=== PATIENT | male | born 1955 | race African-American/Black ===

== ENCOUNTER 2016-07-16 16:11 | Emergency (ER) ==
[2016-07-16 16:17] VITALS: BP 175/89; TEMP 99.1; BMI 21.7
--- NOTE | 2016-07-16 16:44 | ED.PDOC ---
General ED Provider: Dr. LISS FINNEY JR Chief Complaint: Abdominal Pain Stated Complaint: MID LOWER ABD PAIN, INCREASES WITH BREATHING. [ End ]3 days 99.1 68 20 98%175/89 10/10. two weeks of pain no inciting events no problem eating no NVD pain with palpation only in luq Time Seen by Physician: 16:44 Mode of Arrival: Walk-In Information Source: Patient Exam Limitations: No limitations [facility] Nursing and Triage Documentation Reviewed and Agree: No Review of Systems - Review Of Systems Constitutional: Reports: No symptoms Eyes: Reports: No symptoms Ears, Nose, Mouth, Throat: Reports: No symptoms Respiratory: Reports: No symptoms Cardiac: Reports: No symptoms GI: Reports: Abdominal pain ( cramping epigastric ruq) : Reports: No symptoms Musculoskeletal: Reports: No symptoms Skin: Reports: No symptoms Neurological: Reports: No symptoms Endocrine: Reports: No symptoms Hematologic/Lymphatic: Reports: No symptoms All Other Systems: Other Past Medical History - Past Medical History Endocrine: Reports: None Cardiovascular: Reports: Hypertension Respiratory: Reports: None Hematological: Reports: None Gastrointestinal: Reports: None Genitourinary: Reports: None, Kidney stones (renal stent 1 month ago, "this hurts worse") Neuro/Psych: Reports: None Musculoskeletal: Reports: None, Other (htn ks appy hand sx cramping epigastric ruq) Cancer: Reports: None - Surgical History General Surgical History: Reports: Appendectomy, Orthopedic (HAND ) - Family History Family History: Reports: None - Social History Smoking Status: Former smoker Hx Substance Use: No Alcohol Screening: None - Immunizations Tetanus Shot up to Date: Yes Physical Exam - Physical Exam Appearance: Well-appearing, Thin Pain Distress: Moderate Neck: Supple Respiratory: Airway patent GI/: Soft, Bowel sounds normal, No Organomegaly, Tender, Mass Musculoskeletal: Normal strength, ROM intact, No edema, No calf tenderness Skin: Warm, Dry, Normal color Neurological: Sensation intact, Motor intact, Reflexes intact, Cranial nerves intact, Alert, Oriented Physician Notification - Case Discussed Physician Notified: dr junior Time of Notification: 17:45 (transfer [facility]) Critical Care Note - Critical Care Note Total Time (mins): 0 Course - Course Hematology/Chemistry: 07/16/16 16:55 07/16/16 16:55 Orders, Labs, Meds: Lab Review 07/16/16 07/16/16 16:55 17:05 WBC 7.01 RBC 4.34 L Hgb 13.0 L Hct 39.4 L MCV 90.8 MCH 30.0 MCHC 33.0 RDW Coeff of Francis 12.0 Plt Count 214 Immature Gran % (Auto) 0.3 Neut % (Auto) 70.8 Lymph % (Auto) 20.5 [place] % (Auto) 6.6 Eos % (Auto) 1.4 Baso % (Auto) 0.4 Immature Gran # (Auto) 0.0 Neut # 5.0 Lymph # 1.4 [place] # 0.5 Eos # 0.1 Baso # 0.0 Sodium 139 Potassium 3.5 Chloride 106 Carbon Dioxide 24 Anion Gap 12.5 BUN 13 Creatinine 1.31 H Estimated GFR (MDRD) 67.00 BUN/Creatinine Ratio 9.92 Glucose 78 L Calcium 9.5 Total Bilirubin 0.67 AST 16 ALT 11 L Alkaline Phosphatase 63 Total Protein 6.9 Albumin 3.4 Globulin 3.5 Albumin/Globulin Ratio 0.97 Amylase 91 Lipase 50 Urine Color Yellow Urine Clarity Clear Urine pH 6.0 Ur Specific [place] 1.020 Urine Protein 2+ Urine Glucose (UA) Negative Urine Ketones Negative Urine Blood 1+ Urine Nitrite Negative Urine Bilirubin Negative Urine Urobilinogen 0.2 Ur Leukocyte Esterase Negative Urine Microscopic RBC 0-2 Ur Squamous Epith Cells Not present Urine Mucus Trace H. pylori IgG Antibody Positive Orders Category Date Time Status ED IV/MEDIPORT/POWERPORT .ONCE EMERGENCY 07/16/16 16:47 Active AMYLASE Stat LAB 07/16/16 16:55 Completed CBC W/ AUTO DIFF Stat LAB 07/16/16 16:55 Completed COMPREHENSIVE METABOLIC PANEL Stat LAB 07/16/16 16:55 Completed H. PYLORI SCREEN Stat LAB 07/16/16 16:55 Completed LIPASE Stat LAB 07/16/16 16:55 Completed URINALYSIS C & S IF INDICATED Stat LAB 07/16/16 17:05 Completed 0.9 % Sodium Chloride [Saline Flush] MEDS 07/16/16 16:47 Active 1 syr IVF PRN PRN CT ABDOMEN/PELVIS WO CONTRAST Stat RADS 07/16/16 16:47 Completed Medications Generic Name Dose Route Start Last Admin Trade Name Freq PRN Reason Stop Dose Admin Sodium Chloride 1 syr 07/16/16 16:47 Saline Flush IVF PRN PRN To flush IV Vital Signs: Temp Pulse Resp BP Pulse Ox 07/16/16 16:13 99.1 F 68 20 175/89 H 98 Departure - Departure Time of Disposition: 17:52 Disposition: TSF SHORT-TRM HOSP Discharge Problem: Abdominal pain, Intussusception of intestine Condition: Stable Pt referred to PMD for follow-up: No (transfer) Allergies/Adverse Reactions: Allergies No Known Allergies Allergy (Verified 03/15/16 18:31)
[2016-07-16 17:00] LABS: BASOPHILS % (AUTO) 0.4 % (0.0-3.0); EOSINOPHILS # (AUTO) 0.1 K/ul (0.0-0.7); EOSINOPHILS % (AUTO) 1.4 % (0.0-7.0); HEMATOCRIT 39.4 % (42.0-52.0); IMMATURE GRANULOCYTE % (AUTO) 0.3 % (0.0-5.0); LYMPHOCYTES # (AUTO) 1.4 K/uL (0.60-3.4); LYMPHOCYTES % (AUTO) 20.5 (10.0-50.0); MEAN CORPUSCULAR VOLUME 90.8 fl (80.0-94.0); MONOCYTES # (AUTO) 0.5 K/uL (0.4-2.0); MONOCYTES % (AUTO) 6.6 (0-10); NEUTROPHILS % (AUTO) 70.8; PLATELET COUNT 214 10^3/uL (140-440); RED BLOOD COUNT 4.34 10^6/ul (4.70-6.10); WHITE BLOOD COUNT 7.01 K/ul (4.2-10.2)
[2016-07-16 17:11] LABS: H. PYLORI ANTIBODY POSITIVE (NEGATIVE)
[2016-07-16 17:12] LABS: H.PYLORI INTERNAL QC INTERNAL QC VALID
[2016-07-16 17:24] LABS: BILIRUBIN,URINE Negative (NEGATIVE); KETONES,URINE Negative (NEGATIVE); LEUKOCYTE ESTERASE ,URINE Negative (NEGATIVE); NITRITE,URINE Negative (NEGATIVE); PROTEIN,URINE 2+ (NEGATIVE); URINE, BLOOD 1+ (NEGATIVE)
[2016-07-16 17:26] LABS: ADD URINE MICROSCOPIC YES
[2016-07-16 17:28] LABS: ALBUMIN 3.4 g/dL (3.4-5.0); ALBUMIN/GLOBULIN RATIO 0.97; ANION GAP 12.5; BILIRUBIN,TOTAL 0.67 mg/dL (0.00-1.20); BUN/CREATININE RATIO 9.92; CALCIUM 9.5 mg/dL (8.2-10.2); CREATININE 1.31 mg/dL (0.60-1.10); POTASSIUM 3.5 mmol/L (3.5-5.1); TOTAL PROTEIN 6.9 g/dL (5.8-8.1)
--- NOTE | 2016-07-16 17:36 | CT ---
EXAM: CT of the abdomen and pelvis without contrast. HISTORY: Abdominal pain. PROCEDURE: Contiguous axial CT images of the abdomen and pelvis without contrast with coronal and s agittal reformats. FINDINGS: There are multiple fluid density cysts in the liver. The gallbladder, pancreas, spleen a nd adrenal glands are normal in appearance. There are multiple fluid density cysts in both kidneys. There are multiple nonobstructive calcifications in both kidneys. The abdominal aorta is within n ormal limits in diameter. There is an intussusception involving the distal transverse colon and adj acent small bowel.. There is diverticulosis of the colon with no evidence of diverticulitis. No fr ee fluid or free air in the abdomen or pelvis. The bladder is adequately filled with no abnormality identified. The seminal vesicles and prostate gland are unremarkable. There are degenerative saldivar es in the spine. Impression: Intussusception involving the distal transverse colon and adjacent small bowel.. Recom mend stat surgical consult. Diverticulosis of the colon. Nonobstructive bilateral nephrolithiasis as described. Simple hepatic and bilateral renal cysts. Critical result: Results discussed with the emergency room charge nurse on 07/16/2016 at 5:26 p.m. with instructions to contact the patient's physician immediately with the results. The patient's ER physician was not available at the time the report was called.
== END 2016-07-16 18:14 | disposition short-term general hospital (02) ==
LOC: ED 16:11
DX: K56.1 Intussusception (principal); Z87.442 Personal history of urinary calculi; R10.13 Epigastric pain; R10.11 Right upper quadrant pain; I10 Essential (primary) hypertension; Z98.890 Other specified postprocedural states
CPT/HCPCS: 36415; 80053; 81001; 82150; 83690; 85025; 86677; 99285

== ENCOUNTER 2016-07-16 18:19 | Outpatient (CLI) ==
[2016-07-16 16:17] VITALS: BMI 21.7
== END 2016-07-16 18:20 ==
LOC: AMBL 18:19
PROVIDERS: ATTEND Emergency Medicine
DX: K56.1 Intussusception (principal); R10.9 Unspecified abdominal pain

== ENCOUNTER 2017-09-09 11:40 | Outpatient (CLI) ==
--- NOTE | 2017-09-09 13:04 | CT ---
EXAM: CT of the abdomen pelvis without contrast History: Generalized abdominal pain. Comparison: CT abdomen pelvis 07/16/2016 Technique: Multiplanar CT images through the abdomen pelvis were obtained without the administration of IV contrast Findings: Heart is mildly enlarged. Interlobular septal thickening is seen at the lung bases. No acu te osseous abnormalities. Degenerative changes of the spine. No change in the multiple hepatic cysts and no change in the bilateral renal cysts, some of which are hemorrhagic or proteinaceous. Punctate nonobstructing bilateral renal calculi are stable. No perip ancreatic inflammation. The right adrenal gland is unremarkable. Stable mild benign hyperplasia of t he left adrenal gland. Postsurgical changes of the bowel. No bowel obstruction. No bladder wall th ickening. Prostate is not enlarged. Scattered colonic stool. Colonic diverticulosis. No free air and no ascites. Evaluation for lymph nodes is limited due to the lack of IV contrast but no obviousl y enlarged pathologic lymph nodes are appreciated. Atherosclerotic vascular calcifications. Spleen i s unremarkable Impression: 1. No acute intra-abdominal or pelvic process. 2. No change in the hepatic and renal cysts. 3. Nonobstructing bilateral nephrolithiasis. 4. Colonic diverticulosis. 5. Mild cardiomegaly with probable mild interstitial edema.
== END 2017-09-09 11:41 | disposition home or self-care (01) ==
LOC: RAD 11:40
PROVIDERS: ATTEND Nurse Practitioner Family
DX: R10.84 Generalized abdominal pain (principal); I10 Essential (primary) hypertension; K42.9 Umbilical hernia without obstruction or gangrene; Z12.5 Encounter for screening for malignant neoplasm of prostate
CPT/HCPCS: 36415; 80053; 80061; 82150; 83690; 85025

== ENCOUNTER 2017-09-10 09:54 | Outpatient (CLI) ==
--- NOTE | 2017-09-10 13:32 | CT ---
EXAM: CT of the chest with and without contrast History: Primary hypertension. Comparison: Chest CT 03/15/2016, CT abdomen pelvis 09/09/2017 Technique: Multiplanar CT images through the chest were obtained with and without the administration of IV contrast Findings: Heart is mildly enlarged. No pericardial effusion. Great vessels are unremarkable. The pulmonary arteries are not dilated. There may be some degree of left ventricular hypertrophy. No pat hologically enlarged lymph nodes. Enlarged left thyroid lobe with nodules again identified. No cons olidation. No pleural fluid and no pneumothorax. There is interlobular septal thickening. No suspi cious lung nodules or lung masses. Mild emphysema. For details in the upper abdomen, please see dedicated CT abdomen pelvis done yesterday. There has b een no change since that study. No acute osseous abnormalities. Impression: 1. Mild cardiomegaly with some degree of left ventricular hypertrophy. There is probable mild inters titial edema but no overt heart failure. 2. No evidence for pneumonia. 3. Mild emphysema. 4. No change in the enlarged left thyroid lobe with nodules.
== END 2017-09-10 09:55 | disposition home or self-care (01) ==
LOC: RAD 09:54
PROVIDERS: ATTEND Nurse Practitioner Family
DX: I10 Essential (primary) hypertension (principal); I51.7 Cardiomegaly

== ENCOUNTER 2017-10-01 13:57 | Outpatient (CLI) ==
--- NOTE | 2017-10-01 14:52 | DI ---
Exam: Three x-rays of the left shoulder. Comparison: CT chest performed 09/10/2017. Reason for exam: Left shoulder pain. FINDINGS: No acute fracture or dislocation. The humeral head articulates to the bony glenoid. The clavicle appears intact. There is mild degenerative disease in the acromioclavicular joint space. N o unexplained calcific soft tissue density or radiopaque retained foreign body. The scapular Y-view appears unremarkable. Impression: No acute fracture or dislocation in the left shoulder
== END 2017-10-01 13:58 | disposition home or self-care (01) ==
LOC: RAD 13:57
PROVIDERS: ATTEND Nurse Practitioner Family
DX: M25.512 Pain in left shoulder (principal); I10 Essential (primary) hypertension
CPT/HCPCS: 36415; 80053; 81001; 85025

== ENCOUNTER 2017-10-11 06:20 | Outpatient (CLI) ==
--- NOTE | 2017-10-11 10:13 | NM ---
EXAM: Myocardial perfusion imaging HISTORY: Hypertension COMPARISON: None. TECHNIQUE: Patient was injected 3.6 mCi of thallium 201 chloride intravenously while at rest. SPECT imaging of the heart was acquired. Patient was stressed on a treadmill and at peak exercise injected 25.1 mCi of Tc99m Sestamibi intravenously. Another SPECT imaging of the heart was performed. Gated cardiac study was acquired. FINDINGS: Post stress images demonstrate dilated left ventricular cavity. There is a small focal fix ed defect involving inferior apical segment of the left ventricle. No other definite perfusion abnor mality is detected. The left ventricular ejection fraction is 31%. There is generalized hypokinesis . IMPRESSION: 1. SPECT myocardial imaging shows no evidence of reversible ischemia 2. 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 3. Dilated left ventricle with low ejection fraction of 31% and generalized hypokinesis.
--- NOTE | 2017-10-11 11:00 | STECHOSEST ---
Date of Test: 10/11/17 Ordering Physician: REGINALD HERZOG APRN Reason for Exam: MILD CARDIOMEGALY, HYPERTENSION Current Medications: LISINOPRIL Target Heart Rate: 132/156 Resting EKG: SINUS RHYTHM/ ATRIAL BIGEMINY Target Heart Rate: 132/156 S-T SEGMENT STAGE MPH/GRADE HEART RATE BPM BLOOD PRESSURE mmhg RHYTHM +/- ELEVATION DEPRESSION SYMPTOMS,COMMENTS At Rest 63 138/72 SR X NONE 1 1.7/10% 106 152/80 SR X NONE 2 2.5/12% 3 3.4/14% 4 4.2/16% 5 5.0/18% Immediately after 120 SR X FATIGUE Total Time: 4:43 Maximum Heart Rate Reached: 120 Reason for Termination: FATIGUE 4 MINUTES POST EXERCISE: HR 70 BPM, BP 140/68 MMHG, SR, +/-, NO COMMENTS INTERPRETATION: 93% OXYGEN SATURATION WITH EXERCISE ON ROOM AIR METS 7.O 1. NO EVIDENCE OF ISCHEMIA FROM HEART RATE 63 BPM TO 120 BPM 2. NO CHEST PAIN OR DISCOMFORT 3. BLOOD PRESSURE RESPONSE: NORMAL 4. ATRIAL BIGEMINY AT REST AND NO ARRHYTHMIAS AT THE HEIGHT OF EXERCISE HYPOKINETIC LEFT VENTRICLE AT REST WITH IMPROVED LEFT VENTRICULAR CONTRACTILITY WITH EXERCISE RECOMMEND: RESTING 2 "D" "M" MODE ECHO MTDD
--- NOTE | 2017-10-11 11:47 | ECHOSTRESS ---
Date of Exam: 10/11/17 Ordering Physician: REGINALD HERZOG APRN Reason for Echo: MILD CARDIOMEGALY, HTN, STRESS TEST--NO ISCHEMIA M-Mode Normal Adult Results LV Dimensions Normal Adult Results AoV Opening excursions >1.6 LVEDD-base- 3.5-5.8 Ao root dimensions 2.0-3.7 LVESD-base- 3.1-4.6 L. Atrium dimensions 1.9-3.8 Post. Wall thickness 0.8-1.1 IV septum (thickness) 0.7-1.2 Post. Wall excursion 0.72-1.3 Septal motion Systolic motion R. Ventricular cavity 1.5-2.0 LVEF 60% Paradoxical septal wall motion 2-D: HYPOKINETIC LEFT VENTRICLE AT REST AND IMPROVED LEFT VENTRICULAR CONTRACTILITY WITH EXERCISE M-MODE: MV: AV: TV: PV: CHAMBER SIZE: WALL MOTION: HYPOKINETIC LEFT VENTRICLE AT REST AND IMPROVED LEFT VENTRICULAR CONTRACTILITY WITH EXERCISE PERICARDIUM: INTERPRETATION: 1. HYPOKINETIC LEFT VENTRICLE AT REST AND IMPROVED LEFT VENTRICULAR CONTRACTILITY WITH EXERCISE MTDD
== END 2017-10-11 06:21 | disposition home or self-care (01) ==
LOC: CAR 06:20
PROVIDERS: ATTEND Nurse Practitioner Family
DX: I10 Essential (primary) hypertension (principal); I51.7 Cardiomegaly

== ENCOUNTER 2017-10-12 07:22 | Outpatient (CLI) ==
--- NOTE | 2017-10-12 08:53 | US ---
Exam: Ultrasound kidneys History: Renal cyst FINDINGS: The right kidney measures 12.5 cm long axis. Parenchymal echogenicity is normal. There i s no hydronephrosis. Multiple cysts are present. No solid masses are seen. Maximum sense diameter of 2.7 cm in the lower pole. The left kidney measures 9.9 cm long axis. No hydronephrosis or perinephric collections. Parenchyma l echogenicity is normal. Multiple benign cyst are present. No solid mass is seen. Maximum diamete r of 2.1 cm in the lower pole. Urinary bladder appears normal. Impression: 1. Bilateral multicystic kidneys.
== END 2017-10-12 07:23 | disposition home or self-care (01) ==
LOC: RAD 07:22
PROVIDERS: ATTEND Nurse Practitioner Family
DX: R79.9 Abnormal finding of blood chemistry, unspecified (principal); R79.89 Other specified abnormal findings of blood chemistry
CPT/HCPCS: 76770

== ENCOUNTER 2017-10-14 12:58 | Outpatient (CLI) | payer OTHER | END 2017-10-14 12:59 | disposition home or self-care (01) | LOC: CAR 12:58 | PROVIDERS: ATTEND Nurse Practitioner Family | DX: J44.9 Chronic obstructive pulmonary disease, unspecified (principal) ==

== ENCOUNTER 2017-11-11 13:22 | Outpatient (CLI) | END 2017-11-11 13:23 | disposition home or self-care (01) | LOC: FCC-LAB 13:22 | PROVIDERS: ATTEND Nurse Practitioner Family | DX: M19.012 Primary osteoarthritis, left shoulder (principal); I10 Essential (primary) hypertension; I49.9 Cardiac arrhythmia, unspecified | CPT/HCPCS: 36415; 80053; 85025 ==

== ENCOUNTER 2018-01-26 09:49 | Outpatient (CLI) | END 2018-01-26 09:50 | disposition home or self-care (01) | LOC: CAR 09:49 | PROVIDERS: ATTEND Internal Medicine Cardiovascular Disease | DX: I42.9 Cardiomyopathy, unspecified (principal) ==

== ENCOUNTER 2018-02-11 11:55 | Outpatient (CLI) | END 2018-02-11 11:56 | disposition home or self-care (01) | LOC: CAR 11:55 | PROVIDERS: ATTEND Internal Medicine Cardiovascular Disease | DX: R00.2 Palpitations (principal); R07.9 Chest pain, unspecified ==

== ENCOUNTER 2018-09-07 12:58 | Emergency (ER) ==
[2018-09-07 13:04] VITALS: TEMP 98.8; BMI 21.4
--- NOTE | 2018-09-07 13:18 | ED.PDOC ---
General ED Provider: Dr. FRENCH QUINTERO Chief Complaint: Abdominal Pain Stated Complaint: Patient is concerned about his postsurgical abdomene has intusussceptiobowel problem and related surgery 2-3 y ago at the [facility] ate today ,tolerated meal well and had BM as well.Presently he niticed distention in central abdomen,puffed up anterior abd wall riught below rectus insertions to right ribs,Also sharp RMQ-RLQ [place],No clear peritoneal reactivity on manual. Time Seen by Physician: 13:00 Mode of Arrival: Walk-In Information Source: Patient Exam Limitations: No limitations Nursing and Triage Documentation Reviewed and Agree: Yes Does patient meet sepsis criteria?: No System Inflammatory Response Syndrome: Not Applicable Sepsis Protocol: For patient's 13 years and over: Temp is 96.8 and below OR 101 and greater Pulse >90 BPM Resp >20/minute Acutely Altered Mental Status Are patient's symptoms suggestive of a new infection, such as: -Pneumonia -Skin, Soft Tissue -Endocarditis -UTI -Bone, Joint Infection -Implantable Device -Acute Abdominal Infection -Wound Infection -Meningitis -Blood Stream Catheter Infection -Unknown GI Complaint Exam - Abdominal Pain Complaint/Exam Onset: Gradual Duration: two days Symptoms Are: Still present Timing: Intermittent Initial Severity: Mild Current Severity: Moderate Location of Pain: RUQ, RLQ Radiates To: Reports: Flank Character: Reports: Aching Aggravating: Reports: Position Alleviating: Reports: Rest Associated Signs and Symptoms: Reports: Decreased appetite, Nausea, Decreased activity Related History: Reports: Similar episode AAA Risk Factors: Reports: Hypertension Cardiac Risk Factors: Reports: Hypertension Surgical Obstruction Risk Factors: Reports: Prior abdominal surgery Related Surgical History: Reports: Bowel Resection Abdominal Findings: Present: Abdominal distention, Hernia Differential Diagnoses: Appendicitis, Bowel Obstruction, Gastroenteritis, Pancreatitis, Irritable Bowel Syndrome, Ischemic Bowel Quality Indicators for AMI: EKG in 10min. Quality Indicators for Cardiac Chest Pain: EKG in 10min. Quality Indicator For Non-Traumatic Chest Pain/Syncope: EKG Performed Review of Systems - Review Of Systems Constitutional: Reports: Weakness, Other Eyes: Reports: No symptoms Ears, Nose, Mouth, Throat: Reports: No symptoms Respiratory: Reports: No symptoms Cardiac: Reports: No symptoms GI: Reports: Abdomen distended, Abdominal pain : Reports: No symptoms Musculoskeletal: Reports: No symptoms Skin: Reports: No symptoms Neurological: Reports: No symptoms Endocrine: Reports: No symptoms Hematologic/Lymphatic: Reports: No symptoms All Other Systems: Reviewed and Negative Past Medical History - Past Medical History Endocrine: Reports: None Cardiovascular: Reports: Hypertension Respiratory: Reports: None Hematological: Reports: None Gastrointestinal: Reports: None Genitourinary: Reports: None, Kidney stones (renal stent 1 month ago, "this hurts worse") Neuro/Psych: Reports: None Musculoskeletal: Reports: None, Other (htn ks appy hand sx cramping epigastric ruq) Cancer: Reports: None - Surgical History General Surgical History: Reports: Appendectomy, Orthopedic (HAND ) - Family History Family History: Reports: None - Social History Smoking Status: Former smoker Hx Substance Use: No Alcohol Screening: None Physical Exam - Physical Exam Appearance: Ill-appearing Ill-appearing: Moderate Pain Distress: Moderate Eyes: MILVIA ENT: Ears normal Neck: Supple Respiratory: Airway patent Cardiovascular: Tachycardia GI/: Soft Musculoskeletal: Normal strength Skin: Warm Neurological: Sensation intact Critical Care Note - Critical Care Note Total Time (mins): 0 Course - Course Hematology/Chemistry: 09/07/18 13:40 09/07/18 13:40 Orders, Labs, Meds: Lab Review 09/07/18 09/07/18 09/07/18 13:40 13:40 14:00 WBC 4.90 RBC 4.37 L Hgb 13.3 L Hct 40.5 L MCV 92.7 MCH 30.4 MCHC 32.8 RDW Coeff of Francis 12.1 Plt Count 183 Immature Gran % (Auto) 0.2 Neut % (Auto) 53.7 Lymph % (Auto) 33.7 [place] % (Auto) 9.6 Eos % (Auto) 2.4 Baso % (Auto) 0.4 Immature Gran # (Auto) 0.0 Neut # (Auto) 2.6 Lymph # (Auto) 1.7 [place] # (Auto) 0.5 Eos # (Auto) 0.1 Baso # (Auto) 0.0 Sodium 138.1 Potassium 3.96 Chloride 105.2 Carbon Dioxide 25.5 Anion Gap 11.36 BUN 16.1 Creatinine 1.53 H Estimated GFR (MDRD) 56.00 BUN/Creatinine Ratio 10.52 Glucose 90.6 Calcium 9.45 Total Bilirubin 0.71 AST 14.2 L ALT 9.9 Alkaline Phosphatase 55.0 L Total Protein 6.95 Albumin 4.03 Globulin 2.92 Albumin/Globulin Ratio 1.38 Urine Color Yellow Urine Clarity Clear Urine pH 7.0 Ur Specific [place] 1.010 Urine Protein 1+ Urine Glucose (UA) Negative Urine Ketones Negative Urine Blood Trace-intact Urine Nitrite Negative Urine Bilirubin Negative Urine Urobilinogen 0.2 Ur Leukocyte Esterase Trace Urine Microscopic RBC 0-2 Urine Microscopic WBC 5-10 Ur Squamous Epith Cells Not present Orders Category Date Time Status NPO REMINDER: IMAGING ONCE CARE 09/07/18 13:24 Active IV [ED IV/MEDIPORT/POWERPORT] .ONCE EMERGENCY 09/07/18 13:26 Active CBC W/ AUTO DIFF Stat LAB 09/07/18 13:40 Completed CMP [COMPREHENSIVE METABOLIC PANEL] Stat LAB 09/07/18 13:40 Completed COMPREHENSIVE METABOLIC PANEL Stat LAB 09/07/18 15:48 Ordered URINALYSIS C & S IF INDICATED Stat LAB 09/07/18 14:00 Completed URINE CULTURE Stat LAB 09/07/18 14:00 Received 0.9 % Sodium Chloride [Saline Flush] MEDS 09/07/18 13:26 Active 1 syr IVF PRN PRN Sodium Chloride 0.9% [Sodium Chloride] 1,000 ml MEDS 09/07/18 13:[address] ABDOMEN/PELVIS W CONTRAST Stat RADS 09/07/18 13:23 Completed Medications Generic Name Dose Route Start Last Admin Trade Name Freq PRN Reason Stop Dose Admin Sodium Chloride 1 syr 09/07/18 13:26 09/07/18 13:31 Saline Flush IVF 1 syr PRN PRN Administration To flush IV Discontinued Medications Generic Name Dose Route Start Last Admin Trade Name Freq PRN Reason Stop Dose Admin Sodium Chloride 1,000 mls @ 1,000 mls/hr 09/07/18 13:27 09/07/18 13:45 Sodium Chloride IV 09/07/18 14:26 1,000 mls/hr BOLUS STA Administration Vital Signs: Temp Pulse Resp BP Pulse Ox 09/07/18 12:58 98.8 F 57 L 18 156/96 H 97 Departure - Departure Time of Disposition: 15:52 Disposition: HOME SELF-CARE Discharge Problem: Renal stones, Renal and ureteric calculus 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
[2018-09-07] MEDS ORDERED: SODIUM CHLORIDE 1,000 ML IV STA (13:27)
--- NOTE | 2018-09-07 15:07 | CT ---
EXAM: CT abdomen pelvis with contrast HISTORY: Abdominal pain COMPARISON: None TECHNIQUE: CT abdomen pelvis performed with intravenous contrast. Coronal and sagittal reformatted images obtained. FINDINGS: Mild bibasilar subsegmental atelectasis. No free air. No acute abnormalities of the bone s. Degenerative change in the spine. Heart mildly enlarged. Numerous liver cysts and numerous homero tional sub centimeter hypodensities throughout the liver, too small to characterize, grossly similar to prior examination. Gallbladder appears normal. Pancreas appears normal. Spleen appears normal. Small stable left adrenal adenoma. Right adrenal gland unremarkable. Mild inflammatory stranding surrounding the left kidney, nonspecific. This may be infectious/inflamm atory, though appears similar to prior examination. There is also mild left pelviectasis that is sli ghtly increased, without obstructing etiology identified.Numerous bilateral renal cysts and additiona l her attenuation lesions in the left kidney, likely hyperdense cysts, grossly similar to prior exami nation. Numerous additional sub centimeter hypodensities in the kidneys, too small to characterize. Small bilateral renal calculi, poorly visualized with contrast. Bladder grossly unremarkable. Pros ch is mildly enlarged Aorta normal in caliber. Mild lymphadenopathy or ascites identified. Stomach unremarkable. No dila kathy loops small bowel. Suture line in the right colon with antral colonic anastomoses. Colonic dive rticulosis. IMPRESSION: 1. Mild inflammatory stranding surrounding the left kidney, nonspecific. This may be infectious/infl ammatory, though appears similar to prior examination. There is also mild left pelviectasis that is slightly increased, without obstructing etiology identified. 2. Small bilateral renal calculi, poorly evaluated without contrast 3. Numerous bilateral renal cysts and additional her attenuation lesions in the left kidney, likely hyperdense cysts, grossly similar to prior examination. Recommend follow-up ultrasound. 4. Numerous liver cysts that additional sub centimeter hypodensities both characterize. 5. Colonic diverticulosis. 6. Mildly enlarged prostate. 7. Stable left adrenal adenoma.
[2018-09-07 16:11] VITALS: BP 136/84
== END 2018-09-07 16:17 | disposition home or self-care (01) ==
LOC: ED 12:58
DX: N20.2 Calculus of kidney with calculus of ureter (principal); Z87.442 Personal history of urinary calculi; R53.1 Weakness; I10 Essential (primary) hypertension
CPT/HCPCS: 36415; 80053; 81001; 85025; 87086; 96360; 99283